=== PATIENT | female | born 1985 | race Caucasian/White ===

== ENCOUNTER 2018-12-27 21:57 | Emergency (ER) | payer MEDICAID ==
[2018-12-27 22:23] VITALS: BP 141/87; PULSE 76
--- NOTE | 2018-12-27 23:03 | EDM.PDOC ---
ED HPI GENERAL MEDICAL PROBLEM - General Chief Complaint: Skin Complaint Stated Complaint: REACTION FROM ALLERGY SHOT ON LEFT ARM Time Seen by Provider: 12/27/18 23:03 - History of Present Illness INITIAL COMMENTS - FREE TEXT/NARRATIVE: 33-year-old female presents emergency room with swelling redness to her left upper arm after receiving an allergy shot this afternoon. After receiving the shot the patient developed a hive at the injection site and over time the swelling and redness gradually got worse. She presents emergency room tonight with continued swelling and redness gradually getting worse she's not had any breathing difficulties no shortness of breath no other symptoms no abdominal pain discomfort or unusual feeling no throat tightness or swelling. - Related Data Allergies Allergy/AdvReac Type Severity Reaction Status Date / Time aspirin Allergy Unknown Bleeding Verified 12/27/18 22:23 Home Meds: Home Meds Fexofenadine HCl [Allergy Relief] 180 mg PO DAILY 12/20/15 [History] Levonorgestrel-Ethin Estradiol [Aviane] 1 tab PO DAILY 12/27/18 [History] Montelukast [Singulair] 10 mg PO DAILY 12/27/18 [History] Past Medical History - Past Health History Medical/Surgical History: Denies Medical/Surgical History Other HEENT History: Nose has been cauterized multiple times. Cardiovascular History: Reports: None Respiratory History: Reports: Other (See Below) Other Respiratory History: Allergies. 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: Musculoskeletal History: Reports: None Neurological History: Reports: None Psychiatric History: Reports: None Endocrine/Metabolic History: Reports: None Hematologic History: Reports: None Immunologic History: Reports: None Oncologic (Cancer) History: Reports: None Dermatologic History: Reports: None - Infectious Disease History Infectious Disease History: Reports: None - Past Surgical History Head Surgeries/Procedures: Reports: None GI Surgical History: Reports: Appendectomy Female Surgical History: Reports: D&C Social & Family History - Tobacco Use Smoking Status *Q: Never Smoker - Caffeine Use Caffeine Use: Reports: Coffee, Soda - Recreational Drug Use Recreational Drug Use: No ED ROS GENERAL - Review of Systems Review Of Systems: See Below Constitutional: Reports: No Symptoms HEENT: Reports: No Symptoms Respiratory: Reports: No Symptoms Cardiovascular: Reports: No Symptoms GI/Abdominal: Reports: No Symptoms Neurological: Reports: No Symptoms ED EXAM, SKIN/RASH Exam: See Below Exam Limited By: No Limitations General Appearance: Alert, No Apparent Distress Eye Exam: Bilateral Eye: Normal Inspection Ears: Normal External Exam, Normal Canal, Hearing Grossly Normal, Normal TMs Nose: Normal Inspection, Normal Mucosa, No Blood Throat/Mouth: Normal Inspection, Normal Lips, Normal Teeth, Normal Gums, Normal Oropharynx, Normal Voice, No Airway Compromise Head: Atraumatic, Normocephalic Neck: Normal Inspection, Supple, Non-Tender, Full Range of Motion. No: Lymphadenopathy (L), Lymphadenopathy (R) Respiratory/Chest: No Respiratory Distress, Lungs Clear, Normal Breath Sounds Cardiovascular: Regular Rate, Rhythm, No Edema, No Murmur GI/Abdominal: Normal Bowel Sounds, Soft, Non-Tender Neurological: Alert, Oriented, Normal Cognition Skin: Warm, Dry, Intact, Other (The skin on the posterior surface of her upper arm where she had the injection has a large erythematous area oval-shaped. This is roughly 8 x 15 cm.) Course - Vital Signs Last Recorded V/S: Last Vital Signs Temp 36.6 C 12/27/18 22:20 Pulse 76 12/27/18 22:20 Resp 16 12/27/18 22:20 BP 141/87 H 12/27/18 22:20 Pulse Ox 99 12/27/18 22:20 - Orders/Labs/Meds Meds: Medications Discontinued Medications Generic Name Dose Route Start Last Admin Trade Name Stephany PRN Reason Stop Dose Admin Diphenhydramine HCl 25 mg 12/27/18 23:21 12/27/18 23:39 Benadryl PO 12/27/18 23:22 25 mg ONETIME ONE Administration Famotidine 40 mg 12/27/18 23:21 12/27/18 23:39 Pepcid PO 12/27/18 23:22 40 mg ONETIME ONE Administration - Re-Assessments/Exams Free Text/Narrative Re-Assessment/Exam: 12/28/18 01:13 Patient took 25 mg of Benadryl and 5:00 this did not seem to help she was given another 25 mg here along with 40 mg by mouth famotidine. Over time the redness improved and has faded significantly. Departure - Departure Time of Disposition: 01:13 Disposition: Home, Self-Care 01 Clinical Impression: Localized adverse drug reaction - Discharge Information Referrals: Myesha,Belgica L, PA-C [Primary Care Provider] - Forms: ED Department Discharge Additional Instructions: Return to the emergency room with any questions problems worsening symptoms. Follow-up with your recruiter manager on the phone tomorrow as well as your regular provider. Use Benadryl 25 mg every 6 hours for the next 24 hours and then as needed use famotidine, the generic for Pepcid, 20 mg twice a day as needed
[2018-12-27] MEDS ORDERED: Famotidine 20 MG Tab PO ONE (23:21)
[2018-12-27] MEDS ORDERED: diphenhydrAMINE 25 MG Cap PO ONE (23:21)
== END 2018-12-28 01:29 | disposition home or self-care (01) ==
LOC: JD.ED 21:57
DX: L50.9 Urticaria, unspecified (principal); T50.905A Adverse effect of unspecified drugs, medicaments and biological substances, initial encounter; Z88.6 Allergy status to analgesic agent
CPT/HCPCS: 99283; A9270; 99282

== ENCOUNTER 2024-03-19 00:16 | Emergency (ER) | payer MEDICAID ==
[2024-03-19 00:30] VITALS: BP 132/72; PULSE 79
[2024-03-19] MEDS: Ketorolac 30 MG/ML SDV IM ONE (00:51)
[2024-03-19] MEDS: Capsaicin 0.1% Cream 42.5 GM Tube TOP ONE (00:54)
== END 2024-03-19 02:08 | disposition home or self-care (01) ==
LOC: JD.ED 00:16
DX: S29.012A Strain of muscle and tendon of back wall of thorax, initial encounter (principal); M99.02 Segmental and somatic dysfunction of thoracic region; M62.838 Other muscle spasm; Z90.49 Acquired absence of other specified parts of digestive tract; Z88.6 Allergy status to analgesic agent; Z91.048 Other nonmedicinal substance allergy status; Z79.899 Other long term (current) drug therapy; W14.XXXA Fall from tree, initial encounter
CPT/HCPCS: 96372; 99283; A9270; J1885